=== PATIENT | male | born 1955 | race Native Hawaiian/Other Pacific Islander ===

== ENCOUNTER 2017-07-10 19:17 | Emergency (ER) | payer BC ==
[~2017-07-10] VITALS: Ht 170.2 cm; Wt 81.2 kg
[~2017-07-10 19:17] MED LIST: ASPI81 PO; DARV PO; ENAL5TAB98 PO; METO100T PO; PRAV40TA PO; Z.0.NO CURRENT MEDS
[2017-07-10 19:22] VITALS: BP 155/80; PULSE 67; RESP 16; TEMP 98.5; O2SAT 100
--- NOTE | 2017-07-10 19:52 | PD ---
HPI Chief Complaint: Edema Time Seen by Provider: 19:42 Travel History International Travel<30 days: No Contact w/Intl Traveler<30days: No Traveled to known affect area: No History of Present Illness HPI This patient complains of some pain and swelling to his right lower leg. Duration 1 week. Severity is moderate. No injury. No fever. No history of DVT. He takes a baby aspirin daily. He has history of coronary artery bypass grafting. He went to an urgent care center sent him here to get an ultrasound to rule out DVT. No alleviating factors. No exacerbating factors. PFSH Past Medical History Hx Anticoagulant Therapy: Yes (81 MG ASA) Arthritis: No Asthma: No Autoimmune Disease: No Blood Disorders: No Anxiety: No Depression: No Heart Rhythm Problems: No Cancer: No Cardiovascular Problems: Yes (GA/BYPASS) High Cholesterol: No Chemotherapy: No Chest Pain: No Congestive Heart Failure: No COPD: No Cerebrovascular Accident: Yes Diabetes: No Diminished Hearing: No Endocrine: No GERD: No Glaucoma: No Genitourinary: No Headaches: No Hepatitis: No Hiatal Hernia: No Hypertension: No Immune Disorder: No Kidney Stones: No Musculoskeletal: No Neurologic: Yes (POSSIBLE TIA?) Psychiatric: No Reproductive: No Respiratory: No Migraines: No Myocardial Infarction: No Radiation Therapy: No Renal Failure: No Seizures: No Sickle Cell Disease: No Sleep Apnea: No Thyroid Disease: No Ulcer: No Past Surgical History Abdominal Surgery: No AICD: No Appendectomy: No Arteriovenous Shunt: No Cardiac Surgery: No Cholecystectomy: No Ear Surgery: No Endocrine Surgery: No Eye Surgery: No Genitourinary Surgery: No Gynecologic Surgery: No Insulin Pump: No Joint Replacement: No Neurologic Surgery: Yes (BRAIN 1989) Oral Surgery: No Pacemaker: No Thoracic Surgery: No Social History Alcohol Use: Yes (3 OR 4 WEEK) Tobacco Use: No Substance Use: No Allergies-Medications (Allergen,Severity, Reaction): Coded Allergies: No Known Allergies (Verified Adverse Reaction, Unknown, 07/10/17) Reported Meds & Prescriptions Reported Meds & Active Scripts Active Reported Enalapril (Enalapril Maleate) 5 Mg Tab 5 Mg PO DAILY Atorvastatin (Atorvastatin Calcium) 40 Mg Tab 40 Mg PO HS Metoprolol Tartrate 25 Mg Tab 25 Mg PO BID Aspirin 81 Mg Chew 81 Mg CHEW DAILY Review of Systems General / Constitutional: No: Fever Eyes: No: Visual changes HENT: No: Headaches Cardiovascular: No: Chest Pain or Discomfort Respiratory: No: Shortness of Breath Gastrointestinal: No: Abdominal Pain Genitourinary: No: Dysuria Musculoskeletal: Positive: Myalgias, Cramping, Edema, Pain Skin: No Rash Neurologic: No: Weakness Psychiatric: No: Depression Endocrine: No: Polydipsia Hematologic/Lymphatic: No: Easy Bruising Physical Exam Narrative 10 GENERAL: Well-nourished, well-developed patient in no apparent distress. SKIN: Focused skin assessment reveals no rash and nodules. Skin is Warm and dry. HEAD: Atraumatic. Normocephalic. EYES: Pupils equal and round. No scleral icterus. No injection or drainage. ENT: No nasal bleeding or discharge. Mucous membranes pink and moist. NECK: Trachea midline. No JVD. CARDIOVASCULAR: Regular rate and rhythm. No murmur appreciated. RESPIRATORY: No accessory muscle use. Clear to auscultation. Breath sounds equal bilaterally. GASTROINTESTINAL: Abdomen soft, non-tender, nondistended. Hepatic and splenic margins not palpable. MUSCULOSKELETAL: No obvious deformities. No clubbing. No cyanosis. There is some subtle swelling to the right lower extremity. No calf tenderness. No erythema or warmth. NEUROLOGICAL: Awake and alert. No obvious cranial nerve deficits. Motor grossly within normal limits. Normal speech. PSYCHIATRIC: Appropriate mood and affect; insight and judgment normal. Data Data Last Documented VS Vital Signs Date Time Temp Pulse Resp B/P (MAP) Pulse Ox O2 Delivery O2 Flow Rate FiO2 07/10/17 19:42 18 Room Air 07/10/17 19:22 98.5 67 155/80 (105) 100 Orders Orders Us Leg Venous Doppler (07/10/17 ) [facility] Medical Decision Making Medical Screen Exam Complete: Yes Emergency Medical Condition: Yes Medical Record Reviewed: Yes Differential Diagnosis DVT, muscle injury, cellulitis Narrative Course I have reviewed the patient's electronic medical record. I have ordered an ultrasound of the right leg to evaluate for DVT. Ultrasound is negative. Supportive care discussed. Follow-up with primary care Diagnosis Primary Impression: Pain of right lower leg Additional Impression: Swelling of right lower extremity Additional Instructions: The patient was advised to follow up with their physician and return if they worsen. Med/Other Pt SpecificInfo: Other Disposition: DISCHARGE HOME Condition: Stable Yrn Amador MD Jul 10, 2017 19:52
--- NOTE | 2017-07-10 20:25 | RADRPT ---
EXAM DATE/TIME: 07/10/2017 20:01 [place] COMPARISON: No previous studies available for comparison. INDICATIONS : Right leg swelling. MEDICAL HISTORY : Right leg swelling. SURGICAL HISTORY : Anticoagulant therapy. PA/Bypass. ENCOUNTER: Initial ACUITY: 1 week PAIN SCORE: 2/10 LOCATION: Right leg. TECHNIQUE: Venous ultrasound of the leg was performed from the inguinal ligament to the proximal calf. Real-laureen e, color Doppler and spectral tracing, compression and augmentation techniques were used. FINDINGS: There is normal compressibility of the deep venous system from the inguinal region to the proximal ca lf. No echogenic clot is seen in the lumen of the common femoral, femoral, popliteal, and posterior tibial veins. There is a normal response of the venous system to proximal and distal augmentation an d respiration. CONCLUSION: Negative exam with no evidence of deep venous thrombosis. Ernie Springer MD on July 10, 2017 at 20:22 Board Certified Radiologist. This report was verified electronically.
[2017-07-10] MEDS ORDERED: ENAL5TAB PO (20:30)
[2017-07-10] MEDS ORDERED: ATOR40TA16 PO (20:30)
[2017-07-10] MEDS ORDERED: ASPI-516 CHEW (20:30)
[2017-07-10] MEDS ORDERED: METO25TA3 PO (20:30)
[2017-07-10 20:54] VITALS: BP 158/70
== END 2017-07-10 20:56 | disposition home or self-care (01) ==
LOC: PHED 19:17
DX: M79.661 Pain in right lower leg (principal); M79.89 Other specified soft tissue disorders; Z95.1 Presence of aortocoronary bypass graft; Z79.82 Long term (current) use of aspirin
CPT/HCPCS: 93971; 99284